=== PATIENT | male | born 1955 | race Caucasian/White ===

== ENCOUNTER 2019-03-02 18:35 | Emergency (ER) | payer OTHER ==
[~2019-03-02] VITALS: Ht 190.5 cm; Wt 158.8 kg
[2019-03-02 18:40] VITALS: BP 127/81
--- NOTE | 2019-03-02 19:00 | NUR ---
MECHANICAL FALL ONTO CONCRETE TODAY AT HOME---4CM C SHAPED LACERATION RIGHT ELBOW NO ACTIVE SANGUINEOUS DRAINAGE ---ADMITS TO TETANUS SHOT 2-3 YRS AGO +2 RADIAL PULSE <3 SEC CAP REFILL
--- NOTE | 2019-03-02 19:15 | NUR ---
RECEIVED REPORT FROM AM NURSE. PT LAYING IN BED, RR EVEN AND UNLABORED. R ELBOW WITH LACERATION, COVERED IN DRESSING AT THIS TIME. SUTURE SET UP COMPLETE, AWAITING PA FOR SUTURING. ALL NEEDS MET.
[2019-03-02] MEDS ORDERED: ACETAMINOPHEN 325 MG TAB PO ONE (19:45)
[2019-03-02] MEDS ORDERED: LIDOCAINE 1% 500 MG/50 ML VIAL INJ SCH (19:45)
[2019-03-02] MEDS ORDERED: LIDOCAINE MPF 1% - 5 mL VIAL 10 ML ONE (20:04)
--- NOTE | 2019-03-02 21:10 | NUR ---
OMAR MERCEDES AT BEDSIDE FOR SUTURING
[2019-03-02] MEDS ORDERED: BACITRACIN OINT 500 UNITS/GM PKT TP ONE (21:35)
--- NOTE | 2019-03-02 21:43 | NUR ---
PT LAYING IN BED, RR EVEN AND UNLABORED. BACITRACIN APPLIED TO R ELBOW, WOUND CARE PERFORMED BY EMT, +CMS
--- NOTE | 2019-03-02 21:45 | NUR ---
PT WOUND COVERED WITH NON ADHERENT DRESSING AND WRAPPED WITH ROLLER GAUZE AFTER BACITRACIN APPLIED. +CSM
[2019-03-02 22:05] VITALS: BP 125/87
--- NOTE | 2019-03-02 22:05 | NUR ---
Patient discharged with v/s stable. Written and verbal after care instructions given and explained. Patient alert, oriented and verbalized understanding of instructions. Ambulatory with steady gait. All questions addressed prior to discharge. ID band removed. Patient advised to follow up with PMD. Rx of BACITRACIN, ACETAMINOPHEN given. Patient educated on indication of medication including possible reaction and side effects. Opportunity to ask questions provided and answered.
== END 2019-03-02 22:04 | disposition home or self-care (01) ==
LOC: MED 18:35
DX: S51.011A Laceration without foreign body of right elbow, initial encounter (principal); E11.9 Type 2 diabetes mellitus without complications; D68.0 Von Willebrand disease; Z88.0 Allergy status to penicillin; W19.XXXA Unspecified fall, initial encounter; Y93.89 Activity, other specified; Y92.89 Other specified places as the place of occurrence of the external cause; Y99.8 Other external cause status
CPT/HCPCS: 12002; 82948; 99283; J2001

== ENCOUNTER 2019-05-02 10:15 | Emergency (ER) | payer OTHER ==
[~2019-05-02] VITALS: Ht 190.5 cm; Wt 159.7 kg
[2019-05-02 10:28] VITALS: BP 115/94
--- NOTE | 2019-05-02 11:03 | NUR ---
Patient ambulated to bed 5
--- NOTE | 2019-05-02 11:29 | NUR ---
Dr. Napoles evaluating patient at bedside.
--- NOTE | 2019-05-02 11:32 | NUR ---
PT BIB SELF C/O HEAVY METAL POISONING SINCE HE WAS A CHILD. STATES CHRONIC PAIN AT 11/09. STATES INSURANCE WILL NOT PAY FOR CHELATION THERAPY THOUGH HE HAS BEEN TRYING FOR YEARS. VSS. ER TO SEE PT. HX- OPEN HEART SURGERY (2006), KIDNEY FAILURE, DM, MULTIPLE CVA RX- INSULIN ALL- PCN
--- NOTE | 2019-05-02 12:01 | NUR ---
Patient being evaluated by physician at bedside.
[2019-05-02 12:25] VITALS: BP 110/90
--- NOTE | 2019-05-02 12:25 | NUR ---
Patient discharged with v/s stable. Written and verbal after care instructions given and explained. Patient verbalized understanding. Ambulatory with steady gait. All questions addressed prior to discharge. Advised to follow up with PMD.
== END 2019-05-02 12:25 | disposition home or self-care (01) ==
LOC: MED 10:15
DX: Z51.81 Encounter for therapeutic drug level monitoring (principal); E11.9 Type 2 diabetes mellitus without complications; Z88.0 Allergy status to penicillin; Z88.1 Allergy status to other antibiotic agents; Z86.73 Personal history of transient ischemic attack (TIA), and cerebral infarction without residual deficits; Z86.79 Personal history of other diseases of the circulatory system
CPT/HCPCS: 99281

== ENCOUNTER 2020-12-16 15:37 | Emergency (ER) | payer OTHER ==
[~2020-12-16] VITALS: Ht 190.5 cm; Wt 158.8 kg
[2020-12-16 15:52] VITALS: BP 159/69
[2020-12-16 16:49] LABS: BASOPHILS # (AUTO) 0.1 K/uL (0.00-0.22); BASOPHILS % (AUTO) 1.1 % (0.0-2.0); EOSINOPHILS # (AUTO) 0.1 K/uL (0-0.4); EOSINOPHILS % (AUTO) 1.2 % (0.0-4.0); HEMATOCRIT 48.1 % (36-52); HEMOGLOBIN 16.1 g/dL (12.0-18.0); LYMPHOCYTES # (AUTO) 1.6 K/uL (2.0-11.5); LYMPHOCYTES % (AUTO) 25.3 % (20.5-51.1); MEAN CORPUSCULAR HEMOGLOBIN 29 pg (27-31); MEAN CORPUSCULAR HGB CONC 33 g/dL (33-37); MEAN CORPUSCULAR VOLUME 86.5 fL (80-94); MONOCYTES # (AUTO) 0.5 K/uL (0.8-1.0); MONOCYTES % (AUTO) 8.4 % (1.7-9.3); PLATELET COUNT (AUTO) 292 K/uL (140-450); RED BLOOD CELL COUNT(AUTO) 5.57 MIL/uL (4.20-6.10); RED CELL DISTRIBUTION WIDTH 14.5 % (11.6-13.7); WHITE BLOOD COUNT (AUTO) 6.2 K/uL (4.8-10.8)
[2020-12-16 17:05] LABS: ALBUMIN 4.2 g/dL (3.4-5.0); ANION GAP 15.9 (8-16); CARBON DIOXIDE 25.9 mmol/L (21-32); CREATININE 1.1 mg/dL (0.6-1.3); POTASSIUM 3.8 mmol/L (3.5-5.1); TOTAL BILIRUBIN 0.8 mg/dL (0.0-1.0)
[2020-12-16] MEDS ORDERED: VANCOMYCIN 1,000 MG in DEXTROSE 5% 250 ML IV ONE (18:10)
[2020-12-16] MEDS ORDERED: VANCOMYCIN 1,000 MG VIAL ONE (18:14)
[2020-12-16] MEDS ORDERED: CLIN300C2 PO (19:58)
[2020-12-16 20:30] VITALS: BP 159/69
== END 2020-12-16 20:30 | disposition home or self-care (01) ==
LOC: MED 15:37
DX: K02.9 Dental caries, unspecified (principal); K12.0 Recurrent oral aphthae; E11.9 Type 2 diabetes mellitus without complications; I51.9 Heart disease, unspecified; Z86.73 Personal history of transient ischemic attack (TIA), and cerebral infarction without residual deficits; Z88.0 Allergy status to penicillin; Z88.1 Allergy status to other antibiotic agents
CPT/HCPCS: 36415; 70487; 70491; 80053; 85025; 87040; 96365; 99285; J3370; J7060

== ENCOUNTER 2024-06-01 08:30 | Emergency (ER) | payer OTHER ==
[~2024-06-01] VITALS: Ht 190.5 cm; Wt 149.7 kg
[~2024-06-01 08:30] MED LIST: CLIN300C2 PO
[2024-06-01 08:36] VITALS: BP 115/79; PULSE 99; RESP 16; TEMP 97.1; O2SAT 98
[2024-06-01 08:55] VITALS: O2SAT 98
[2024-06-01] MEDS ORDERED: VANCOMYCIN 1,000 MG VIAL ONE (09:12)
[2024-06-01] MEDS: VANCOMYCIN 1,000 MG in DEXTROSE 5% 250 ML IV ONE (09:17)
[2024-06-01 11:13] VITALS: BP 121/75; PULSE 88; RESP 16; TEMP 97.9; O2SAT 98
== END 2024-06-01 11:13 | disposition home or self-care (01) ==
LOC: MED 08:30
DX: L03.211 Cellulitis of face (principal); E11.9 Type 2 diabetes mellitus without complications; Z86.73 Personal history of transient ischemic attack (TIA), and cerebral infarction without residual deficits; Z90.49 Acquired absence of other specified parts of digestive tract; Z98.890 Other specified postprocedural states; Z79.899 Other long term (current) drug therapy; Z88.0 Allergy status to penicillin; Z88.1 Allergy status to other antibiotic agents; Z88.2 Allergy status to sulfonamides
CPT/HCPCS: 96365; 99284; J3370